=== PATIENT | female | born 1985 | race Caucasian/White ===

== ENCOUNTER 2018-03-16 04:02 | Inpatient (IN) | payer OTHER ==
[2018-03-16] MEDS ORDERED: Lidocaine 1%* 5 ML VIAL ONE (05:56)
--- NOTE | 2018-03-16 06:06 | HP ---
General Information - General Information Maternal Age: 32 Grav: 1 Para: 0 SAB: 0 IEA: 0 Estimated Due Date: 03/07/18 Determined By: LMP Gestational Age in Weeks and Days: 41 Weeks and 2 Days Maternal Blood Type and Rh: O Positive - Results this Serology/RPR Result: Non-Reactive Rubella Result: Immune HBsAg Result: Negative HIV Result: Negative GBS Culture Result: Negative Past Medical History Delivery History Comment: primip Pertinent Past Medical History: See Records Past Medical History Comment: Hx depression/anxiety. No current medication Pertinent Past Surgical History: See Records Past Surgical History Comment: 2000 wisdom tooth extraction Pertinent Family History: See Records Family History Comment: Father: Chronic lymphatic leukemia. Recurrent fungal infections Mother: Hypothyroidism PGM: . Stroke PGF: . Lupus MGM: . Heart disease MGF: Diabetes - Antepartal Records Antepartal Records: Reviewed, Complicated by: - Breech s/p successful ECV 02/18/2018. Suspected SGA with close surveillance Review of Systems Constitutional: Uncomfortable - with UCs CV Complaint: No Respiratory: Shortness of Breath: No Gastrointestinal: No Nausea/Vomiting - +Nausea with UCs. +Diarrhea overnight Genitourinary: No Dysuria, No Bleeding, No Leaking Fluid Musculoskeletal: Contractions Neurological: No Headache, No Visual Changes Movement: Normal Exam Allergies/Adverse Reactions: Allergies Sulfa (Sulfonamide Antibiotics) Allergy (Verified 02/18/18 08:53) Rash blotchy purple patches BP: 111/76 HR: 73 RR: 18 T: 97.4 O2Sat: 100% on RA - Measurements Height: 5 ft 2 in Weight: 153 lb Weight in lbs: 153.684149 Body Mass Index (BMI): 28.0 Pre- Weight: 120 lb Weight Gained This : 33 lbs and 0 ozs - Exam Abdomen: No Upper Quadrant Pain Breast: Breast Exam Deferred CVA: No CVA Tenderness Extremities: Edema - mild bilateral pedal edema Heart: Normal Rhythm/Heart Sounds HEENT: No Significant Findings Lungs: Clear Bilaterally Rectal: Rectal Exam Deferred Reflexes: DTR 2+ Thyroid: No Thyromegaly - Abdominal Exam Abdomen Exam: Non-Tender - Ultrasound/Biophysical Profile Ultrasound Status: Not Done Targeted Exam Findings See L&D Outpatient Visit Provider Note for Findings: N/A Estimated Weight: 6.5-7lbs Cervical Exam: Fingertip Effacement: 80% Station: -1 - Per RN exam 0430 Presenting Part: Vertex Membrane Status: Intact Sterile Speculum Exam: Not done Bleeding/Discharge: None EFM Findings - External Monitor Findings Baseline Heart Rate: 125 External Monitor Findings: Accelerations Present, No Pattern of Variable or Late Decelerations - early type decels down to 100-110bpm with UCs, Variability Moderate, Baseline Stable External Monitor Findings Comment: Category II FHT. Doubt metabolic acidemia. Bears close monitoring Contractions: Regular, Moderate, Strong, 45-90 Seconds, >90 Seconds Contraction Frequency: q 2-5 Assessment/Plan - Reason for Visit Reason for Visit: IUP at 41-2/7 in early active labor - Obstetrical Risk Factors Obstetrical Risk Factors: Post-Dates - Plan Plan: Observe, Early Labor, IV Hydration Plan Comment: P: Admit pt to L&D. Counseled for trial IV fluids. Given nausea and persistent diarrhea overnight pt agrees. Close monitoring of FHT. Pt hoping for minimal intervention. Will be supported by and labor asl interpreter at bedside. Report to Cheryl Kemp CNM who will assume care at 0800 - Date/Time of Admission Date of Admission: 03/16/18 Time of Admission: 06:00
[2018-03-16 06:31] LABS: ABS Basophils 0 10^3/ul (0-0.2); ABS Eosinophils 0 10^3/ul (0-0.6); ABS Lymphocytes 1.2 10^3/ul (1.0-4.8); ABS Monocytes 0.6 10^3/ul (0-0.8); ABS Neutrophils 13.4 10^3/ul (1.5-7.7); ABS Nucleated RBC 0 10^3/ul; Eosinophil % 0.2 % (0-6); Hematocrit 38 % (35-47); Hemoglobin 13.4 g/dl (12.0-16.0); Lymphocyte % 7.8 % (25-47); Mean Corpuscular HGB Conc 35 g/dl (31-36); Mean Corpuscular Hemoglobin 32 pg (27-31); Mean Corpuscular Volume 92 fL (80-97); Nucleated Red Blood Cells % 0.1; Platelet Count 173 10^3/ul (150-450); Red Blood Count 4.18 10^6/ul (4.00-5.40); Red Cell Distribution Width 13 % (10.5-15); White Blood Count 15.3 10^3/ul (3.5-10.8)
[2018-03-16] MEDS ORDERED: Oxytocin in LR* 20 UNITS/1,000 ML BAG IVPB ONE (11:09)
[2018-03-16] MEDS ORDERED: Glycerin ADULT SUPP PR PRN (11:24)
[2018-03-16] MEDS ORDERED: Witch Hazel PAD* JAR TOPICAL PRN (11:24)
[2018-03-16] MEDS ORDERED: Dibucaine 1% 28.35 GM TUBE PR PRN (11:24)
[2018-03-16] MEDS ORDERED: Tetan/Diph/Pertus SYR(Tdap)* 0.5 ML SYR(BOOSTRIX) use SYR IM ONE (11:24)
[2018-03-16] MEDS ORDERED: Acetaminophen TAB* 325 MG PO PRN (11:24)
--- NOTE | 2018-03-16 11:32 | PROCNOTE ---
[facility] OB: Delivery Note - Nursery Level of Nursery: Regular/Bedside - Perineum Perineal Injury: Abrasion Only - Not Repaired Perineal Repair: None - Additional Delivery Notes Additional Delivery Notes: SVB LFC, OA over intact perineum. Infant to maternal abd, pink with stimulation , suctioning. Terminal meconium. Placenta Loretta, calcified. Fundus firm with massage, IV with pitocin running. EBL 200cc. Baby with Apgars 9/9. Mother and baby stable.
[2018-03-16] MEDS ORDERED: Oxytocin in LR* 20 UNITS/1,000 ML BAG IVPB SCH (12:00)
[2018-03-16] MEDS: Ibuprofen TAB* 600 MG PO PRN ×2 (13:33→21:49)
[2018-03-16] MEDS: Docusate CAP* 100 MG PO SCH (20:41)
[2018-03-17 06:53] LABS: Hematocrit 32 % (35-47); Mean Corpuscular HGB Conc 35 g/dl (31-36); Mean Corpuscular Hemoglobin 32 pg (27-31); Mean Corpuscular Volume 92 fL (80-97); Mean Platelet Volume 9.1 um3 (7.4-10.4); Platelet Count 146 10^3/ul (150-450); Red Blood Count 3.49 10^6/ul (4.00-5.40); Red Cell Distribution Width 13 % (10.5-15); White Blood Count 14.8 10^3/ul (3.5-10.8)
[2018-03-17] MEDS: Docusate CAP* 100 MG PO SCH ×3 (08:46→21:11)
[2018-03-17] MEDS: Ibuprofen TAB* 600 MG PO PRN ×3 (08:46→21:11)
[2018-03-17] MEDS ORDERED: Ferrous Gluconate TAB* 324 MG TAB PO SCH (09:00)
--- NOTE | 2018-03-17 16:47 | PTEDU ---
Patient Name: TONI SIBLYE TONI SIBLEY selected video: Follow Me Mum: [facility] [place] [facility] Successful to view on 8 at 4:46:48 PM [id number]
[2018-03-18] MEDS: Ibuprofen TAB* 600 MG PO PRN ×2 (05:57→12:28)
[2018-03-18 08:12] VITALS: BP 105/65
[2018-03-18] MEDS: Docusate CAP* 100 MG PO SCH (08:32)
== END 2018-03-18 13:05 | disposition home or self-care (01) | DRG 560 ==
LOC: MCHOBOUT 04:02 → MCHOB 05:46
PROVIDERS: ADMIT Midwife; ATTEND Midwife
DX: O48.0 Post-term pregnancy (principal); Z37.0 Single live birth; Z3A.41 41 weeks gestation of pregnancy; Z88.2 Allergy status to sulfonamides; O71.89 Other specified obstetric trauma; O77.0 Labor and delivery complicated by meconium in amniotic fluid
CPT/HCPCS: 36415; 85025; 85027; 86850; 86900; 86901; A9270-GY

== ENCOUNTER 2018-07-31 11:12 | Emergency (ER) | payer OTHER ==
[2018-07-31 11:30] VITALS: BP 100/63
--- NOTE | 2018-07-31 13:11 | UC ---
Respiratory Complaint HPI - HPI Summary HPI Summary: 32 yo pt with nasal d/c, congestion and cough for the past 5 days. Currently , delivered her baby girl in February 2018, on MVI. States she has clear post nasal drip, no chills or fever. Denies n/v/d. States she feels run down. Has no menses since, but has a Paragard inserted. - History of Current Complaint Chief Complaint: UCRespiratory Stated Complaint: HEADACHE SINUS ISSUE NO ENERGY Time Seen by Provider: 07/31/18 12:39 Hx Obtained From: Patient Hx Last Menstrual Period: del 03/16/18 Onset/Duration: Gradual Onset, Lasting Days Timing: Constant Severity Initially: Mild Severity Currently: Mild Pain Intensity: 0 Aggravating Factors: Nothing Alleviating Factors: Nothing Associated Signs And Symptoms: Positive: Negative - Risk Factors Pulmonary Embolism Risk Factors: Negative Cardiac Risk Factors: Negative Pseudomonas Risk Factors: Negative Tuberculosis Risk Factors: Negative - Allergies/Home Medications Allergies/Adverse Reactions: Allergies Allergy/AdvReac Type Severity Reaction Status Date / Time Sulfa (Sulfonamide Allergy Rash Verified 07/31/18 11:31 Antibiotics) PMH/Surg Hx/FS Hx/Imm Hx Previously Healthy: Yes - Surgical History Surgical History: Yes Surgery Procedure, Year, and Place: 2000 - [place] teeth pulled - Family History Known Family History: Positive: None - Social History Alcohol Use: None Substance Use Type: None Smoking Status (MU): Never Smoked Tobacco Have You Smoked in the Last Year: No - Immunization History Most Recent Influenza Vaccination: unknown Most Recent Pneumonia Vaccination: none Review of Systems All Other Systems Reviewed And Are Negative: Yes ENT: Positive: Sore Throat, Nasal Discharge, Sinus Congestion Respiratory: Positive: Cough Physical Exam Triage Information Reviewed: Yes Appearance: Well-Appearing, No Pain Distress, Well-Nourished Vital Signs: Initial Vital Signs Temp 98.3 F 07/31/18 11:28 Pulse 100 07/31/18 11:28 Resp 20 07/31/18 11:28 BP 100/63 07/31/18 11:28 Pulse Ox 100 07/31/18 11:28 Vital Signs Reviewed: Yes Eyes: Positive: Conjunctiva Clear ENT: Positive: Hearing grossly normal, Pharynx normal, TMs normal, Uvula midline Neck: Positive: Supple, Nontender, No Lymphadenopathy Respiratory: Positive: Chest non-tender, Lungs clear, Normal breath sounds, No respiratory distress Cardiovascular: Positive: RRR, No Murmur, Pulses Normal, Brisk Capillary Refill Abdomen Description: Positive: Nontender Neurological: Positive: Alert, Muscle Tone Normal Psychological: Positive: Normal Response To Family Skin Exam: Other - non tender soft subcutaneous mass on medial aspect of distal right leg UC Diagnostic Evaluation - Laboratory O2 Sat by Pulse Oximetry: 100 Respiratory Course/Dx - Course Course Of Treatment: viral URI, continue supportive care. Will have stand by antibiotic amoxil if symptoms start worsening but wait and see option given. Lipoma of leg is non tender and patient hasn't noticed any growth, follow up with PCP - Differential Dx/Diagnosis Provider Diagnoses: lipoma. URI viral Discharge - Sign-Out/Discharge Documenting (check all that apply): Patient Departure All imaging exams completed and their final reports reviewed: No Studies - Discharge Plan Condition: Stable Disposition: HOME Patient Education Materials: Viral Syndrome (ED), Amoxicillin (By mouth) Referrals: Mary Monge MD [Primary Care Provider] - - Billing Disposition and Condition Condition: STABLE Disposition: Home
== END 2018-07-31 13:51 | disposition home or self-care (01) ==
LOC: UCEAST 11:12
DX: J06.9 Acute upper respiratory infection, unspecified (principal); D17.9 Benign lipomatous neoplasm, unspecified; Z88.2 Allergy status to sulfonamides
CPT/HCPCS: 99212; G0463

== ENCOUNTER 2019-04-23 19:05 | Emergency (ER) | payer OTHER ==
[2019-04-23 20:46] LABS: ABS Lymphocytes 0.4 10^3/ul (1.0-4.8); ABS Monocytes 0.4 10^3/ul (0-0.8); ABS Neutrophils 4.9 10^3/ul (1.5-7.7); Eosinophil % 0.3 %; Hematocrit 42 % (35-47); Hemoglobin 14.5 g/dL (12.0-16.0); Lymphocyte % 7.2 %; Mean Corpuscular HGB Conc 35 g/dL (31-36); Mean Corpuscular Hemoglobin 30 pg (27-31); Mean Corpuscular Volume 86 fL (80-97); Mean Platelet Volume 8.4 fL (7.4-10.4); Platelet Count 184 10^3/uL (150-450); Red Cell Distribution Width 13 % (10-15); White Blood Count 5.8 10^3/uL (3.5-10.8)
[2019-04-23 20:50] LABS: Urine Appearance Clear; Urine Bilirubin Negative (Negative); Urine Blood Negative (Negative); Urine Color Straw; Urine Glucose Negative (Negative); Urine Ketones Negative (Negative); Urine Nitrite Negative (Negative); Urine Protein Negative (Negative); Urine Specific Gravity 1.003 (1.010-1.030); Urine Urobilinogen Negative (Negative)
[2019-04-23 21:06] LABS: Albumin 5.4 g/dL (3.2-5.2); Albumin/Globulin Ratio 1.5 (1-3); BUN/Creatinine Ratio 15.1 (8-20); C Reactive Protein 16.57 mg/L (<8.01); Calcium 9.6 mg/dL (8.6-10.3); EGFR African American 109.8 (>60); EGFR Non-African American 90.7 (>60); Globulin 3.5 g/dL (2-4); Potassium 3.6 mmol/L (3.5-5.0); Total Bilirubin 0.5 mg/dL (0.2-1.0); Total Protein 8.9 g/dL (6.4-8.9)
[2019-04-23] MEDS ORDERED: Ketorolac INJ* 30 MG/ML 1 ML VIAL IV PUSH ONE (22:07)
--- NOTE | 2019-04-23 22:25 | ED ---
GI/ HPI - HPI Summary HPI Summary: 33-year-old female presents with left lower quadrant pain today. States she's been having a fever. Her 1-year-old child has been sick with diarrhea for the past 2 weeks and did have a fever last week. She denies any nausea vomiting. No diarrhea. She did not eat anything different. Did travel about a month ago to [facility]. She's never had this before. No medical conditions. Did not take anything for the fever. Denies any cough. No chest pain or shortness breath. No previous abd surgeries. - History of Current Complaint Chief Complaint: EDAbdPain Time Seen by Provider: 04/23/19 22:00 Stated Complaint: FEVER/ABD PAIN PER PT Hx Last Menstrual Period: del 03/16/18 Pain Intensity: 8 - Allergy/Home Medications Allergies/Adverse Reactions: Allergies Allergy/AdvReac Type Severity Reaction Status Date / Time Sulfa (Sulfonamide Allergy Rash Verified 04/23/19 19:15 Antibiotics) Home Medications: Home Medications Levothyroxine TAB* [Synthroid TAB*] 12.5 mcg PO DAILY 04/23/19 [History Confirmed 04/23/19] Magnesium Oxide TAB* [MagOx 400 TAB*] 400 mg PO DAILY 04/23/19 [History Confirmed 04/23/19] Braddock-3 Fatty Acids/Fish Oil [Braddock 3] 1 cap PO DAILY 04/23/19 [History Confirmed 04/23/19] Pnv No.95/Ferrous Fum/Folic AC [ Vitamin/Iron 28-0.8 mg] 1 tab PO DAILY 04/23/19 [History Confirmed 04/23/19] PMH/Surg Hx/FS Hx/Imm Hx Endocrine/Hematology History: Denies: Hx Diabetes, Hx Thyroid Disease Cardiovascular History: Denies: Hx Hypertension Respiratory History: Denies: Hx Asthma, Hx Chronic Obstructive Pulmonary Disease (COPD) GI History: Denies: Hx Ulcer Psychiatric History: Reports: Hx Anxiety, Hx Depression - Surgical History Surgery Procedure, Year, and Place: 2000 - [place] teeth pulled Infectious Disease History: No Infectious Disease History: Reports: Traveled Outside the in Last 30 Days Denies: Hx Clostridium Difficile, Hx Hepatitis, Hx Human Immunodeficiency Virus (HIV), Hx of Known/Suspected MRSA, Hx Shingles, Hx Tuberculosis, Hx Known/ Suspected VRE, Hx Known/Suspected VRSA, History Other Infectious Disease - Family History Known Family History: Positive: None - Social History Alcohol Use: None Substance Use Type: Reports: None Smoking Status (MU): Never Smoked Tobacco Have You Smoked in the Last Year: No Review of Systems Positive: Fever Negative: Chest Pain Negative: Shortness Of Breath Positive: Abdominal Pain. Negative: Vomiting, Diarrhea, Nausea All Other Systems Reviewed And Are Negative: Yes Physical Exam Triage Information Reviewed: Yes Vital Signs On Initial Exam: Initial Vitals Temp Pulse Resp BP Pulse Ox 101.7 F 104 15 113/70 99 04/23/19 19:14 04/23/19 19:14 04/23/19 19:14 04/23/19 19:14 04/23/19 19:14 Vital Signs Reviewed: Yes Appearance: Positive: Well-Appearing Skin: Positive: Warm, Dry Head/Face: Positive: Normal Head/Face Inspection Eyes: Positive: Normal, Conjunctiva Clear ENT: Positive: Pharynx normal Respiratory/Lung Sounds: Positive: Clear to Auscultation, Breath Sounds Present Cardiovascular: Positive: Normal, RRR Abdomen Description: Positive: Soft, Other: - tenderess in LLQ Bowel Sounds: Positive: Present Musculoskeletal: Positive: Normal Neurological: Positive: Normal Psychiatric: Positive: Normal Diagnostics - Vital Signs Vital Signs Temp Pulse Resp BP Pulse Ox 04/23/19 21:10 102.4 F 97 18 109/90 100 04/23/19 19:14 101.7 F 104 15 113/70 99 - Laboratory Lab Results: Lab Results 04/23/19 04/23/19 04/23/19 Range/Units 20:34 20:34 20:34 WBC 5.8 (3.5-10.8) 10^3/uL RBC 4.80 (3.70-4.87) 10^6 /uL Hgb 14.5 (12.0-16.0) g/dL Hct 42 (35-47) % MCV 86 (80-97) fL MCH 30 (27-31) pg MCHC 35 (31-36) g/dL RDW 13 (10-15) % Plt Count 184 (150-450) 10^3/uL MPV 8.4 (7.4-10.4) fL Neut % (Auto) 84.8 % Lymph % (Auto) 7.2 % [place] % (Auto) 7.1 % Eos % (Auto) 0.3 % Baso % (Auto) 0.6 % Absolute Neuts (auto) 4.9 (1.5-7.7) 10^3/ul Absolute Lymphs (auto) 0.4 L (1.0-4.8) 10^3/ul Absolute Monos (auto) 0.4 (0-0.8) 10^3/ul Absolute Eos (auto) 0.0 (0-0.6) 10^3/ul Absolute Basos (auto) 0.0 (0-0.2) 10^3/ul Absolute Nucleated RBC 0.0 10^3/ul Nucleated RBC % 0.0 Sodium 132 L (135-145) mmol/L Potassium 3.6 (3.5-5.0) mmol/L Chloride 99 L (101-111) mmol/L Carbon Dioxide 22 (22-32) mmol/L Anion Gap 11 (2-11) mmol/L BUN 11 (6-24) mg/dL Creatinine 0.73 (0.51-0.95) mg/dL Est GFR ( Amer) 109.8 (>60) Est GFR (Non-Af Amer) 90.7 (>60) BUN/Creatinine Ratio 15.1 (8-20) Glucose 116 H (70-100) mg/dL Lactic Acid 1.7 (0.5-2.0) mmol/L Calcium 9.6 (8.6-10.3) mg/dL Total Bilirubin 0.50 (0.2-1.0) mg/dL AST 28 (13-39) U/L ALT 24 (7-52) U/L Alkaline Phosphatase 94 (34-104) U/L C-Reactive Protein 16.57 H (<8.01) mg/L Total Protein 8.9 (6.4-8.9) g/dL Albumin 5.4 H (3.2-5.2) g/dL Globulin 3.5 (2-4) g/dL Albumin/Globulin Ratio 1.5 (1-3) Lipase 10 L (11.0-82.0) U/L Urine Color Urine Appearance Urine pH (5-9) Ur Specific Hunters (1.010-1.030) Urine Protein (Negative) Urine Ketones (Negative) Urine Blood (Negative) Urine Nitrate (Negative) Urine Bilirubin (Negative) Urine Urobilinogen (Negative) Ur Leukocyte Esterase (Negative) Urine Glucose (Negative) 04/23/19 Range/Units 20:35 WBC (3.5-10.8) 10^3/uL RBC (3.70-4.87) 10^6 /uL Hgb (12.0-16.0) g/dL Hct (35-47) % MCV (80-97) fL MCH (27-31) pg MCHC (31-36) g/dL RDW (10-15) % Plt Count (150-450) 10^3/uL MPV (7.4-10.4) fL Neut % (Auto) % Lymph % (Auto) % [place] % (Auto) % Eos % (Auto) % Baso % (Auto) % Absolute Neuts (auto) (1.5-7.7) 10^3/ul Absolute Lymphs (auto) (1.0-4.8) 10^3/ul Absolute Monos (auto) (0-0.8) 10^3/ul Absolute Eos (auto) (0-0.6) 10^3/ul Absolute Basos (auto) (0-0.2) 10^3/ul Absolute Nucleated RBC 10^3/ul Nucleated RBC % Sodium (135-145) mmol/L Potassium (3.5-5.0) mmol/L Chloride (101-111) mmol/L Carbon Dioxide (22-32) mmol/L Anion Gap (2-11) mmol/L BUN (6-24) mg/dL Creatinine (0.51-0.95) mg/dL Est GFR ( Amer) (>60) Est GFR (Non-Af Amer) (>60) BUN/Creatinine Ratio (8-20) Glucose (70-100) mg/dL Lactic Acid (0.5-2.0) mmol/L Calcium (8.6-10.3) mg/dL Total Bilirubin (0.2-1.0) mg/dL AST (13-39) U/L ALT (7-52) U/L Alkaline Phosphatase (34-104) U/L C-Reactive Protein (<8.01) mg/L Total Protein (6.4-8.9) g/dL Albumin (3.2-5.2) g/dL Globulin (2-4) g/dL Albumin/Globulin Ratio (1-3) Lipase (11.0-82.0) U/L Urine Color Straw Urine Appearance Clear Urine pH 8.0 (5-9) Ur Specific [place] 1.003 L (1.010-1.030) Urine Protein Negative (Negative) Urine Ketones Negative (Negative) Urine Blood Negative (Negative) Urine Nitrate Negative (Negative) Urine Bilirubin Negative (Negative) Urine Urobilinogen Negative (Negative) Ur Leukocyte Esterase Negative (Negative) Urine Glucose Negative (Negative) Result Diagrams: 04/23/19 20:34 04/23/19 20:34 Lab Statement: Any lab studies that have been ordered have been reviewed, and results considered in the medical decision making process. - CT abd CT Interpretation Completed By: Radiologist Summary of CT Findings: IMPRESSION: 1. There is a short segment of jejunum- jejunal intussusception in the left. abdomen without resulting bowel obstruction and no visible mass or inflammatory. change. 2. No other acute CT pathology. GIGU Course/Dx - Course Course Of Treatment: 33-year-old female presents with left lower quadrant pain today. States she's been having a fever. Her 1-year-old child has been sick with diarrhea for the past 2 weeks and did have a fever last week. She denies any nausea vomiting. No diarrhea. She did not eat anything different. Did travel about a month ago to [facility]. She's never had this before. No medical conditions. Did not take anything for the fever. Denies any cough. No chest pain or shortness breath. No previous abd surgeries. On exam tenderness left lower quadrant. Has a fever here. Gave fluids and Toradol. wbc normal. CT shows intussception with no obstruction. discussed case with dr pascal said likely incidental finding and would not do anything with it. told to follow up with primary. patient understand and agrees with plan. - Diagnoses Differential Diagnoses - Female: Gastroenteritis (Viral), Gastroenteritis ( Bacterial), Urinary Tract Infection Provider Diagnoses: Abdominal pain Discharge - Sign-Out/Discharge Documenting (check all that apply): Patient Departure Patient Received Moderate/Deep Sedation with Procedure: No - Discharge Plan Condition: Good Disposition: HOME Patient Education Materials: Acute Abdominal Pain (ED) Referrals: Mary Monge MD [Primary Care Provider] - Additional Instructions: Drink small amounts of fluid as tolerated When able to eat follow BRAT diet: Bananas, rice, applesauce, toast Take ibuprofen or Tylenol for pain as needed every 6 hours Follow up with primary within 5 days Return to ED if develop profuse vomiting or any new or worsening symptoms - Billing Disposition and Condition Condition: GOOD Disposition: Home
[2019-04-23] MEDS: NS 0.9% 1000 ML** 2,000 ML IV ONE ×2 (22:32→22:33)
[2019-04-23] MEDS ORDERED: Iohexol 300* (CONTRAST) 10 ML SDV IV ONE (23:56)
[2019-04-24 02:21] VITALS: BP 89/51
== END 2019-04-24 02:20 | disposition home or self-care (01) ==
LOC: ED 19:05
DX: R10.32 Left lower quadrant pain (principal); K56.1 Intussusception
CPT/HCPCS: 36415; 74177; 80053; 81003; 83605; 83690; 85025; 86140; 87040; 96360; 96361; 96374; 99284; J1885; Q9967

== ENCOUNTER 2021-11-24 04:56 | Inpatient (IN) ==
[2021-11-24] MEDS ORDERED: Buffered Lidocaine 1% SYRIN 1 ml INTRADERM ONE (06:27)
[2021-11-24] MEDS ORDERED: Lactated Ringers 1000 ml BAG 1,000 ML IV ONE (06:27)
[2021-11-24] MEDS ORDERED: Lactated Ringers 1000 ml BAG 1,000 ML IV SCH (07:00)
[2021-11-24] MEDS: Dibucaine 1% OINT 28.35 GM TUBE PR PRN ×2 (10:03→20:19)
[2021-11-24] MEDS: Witch Hazel PAD JAR TOPICAL PRN (10:03)
[2021-11-24 11:19] LABS: Urine Benzodiazepine Screen None Detected (None Detect); Urine Cannabinoids Screen None Detected (None Detect); Urine Opiates Screen None Detected (None Detect)
[2021-11-25 06:15] LABS: ABS Basophils 0.1 10^3/ul (0-0.2); ABS Eosinophils 0.1 10^3/ul (0-0.6); ABS Lymphocytes 2.6 10^3/ul (1.0-4.8); ABS Monocytes 0.8 10^3/ul (0-0.8); ABS Neutrophils 8.4 10^3/ul (1.5-7.7); Eosinophil % 1.1 %; Hematocrit 31 % (35-47); Hemoglobin 10.4 g/dL (12.0-16.0); Lymphocyte % 21.6 %; Mean Corpuscular HGB Conc 33 g/dL (31-36); Mean Corpuscular Hemoglobin 31 pg (27-31); Mean Corpuscular Volume 92 fL (80-97); Mean Platelet Volume 8.6 fL (7.4-10.4); Nucleated Red Blood Cells % 0.2; Platelet Count 171 10^3/uL (150-450); Red Cell Distribution Width 12 % (10-15); White Blood Count 11.9 10^3/uL (3.5-10.8)
[2021-11-25] MEDS: Dibucaine 1% OINT 28.35 GM TUBE PR PRN (19:56)
[2021-11-25] MEDS: Witch Hazel PAD JAR TOPICAL PRN (19:56)
[2021-11-26 08:18] VITALS: BP 115/58
== END 2021-11-26 13:56 | disposition home or self-care (01) | DRG 560 ==
LOC: MCHOBOUT 04:56 → MCHOB 05:32
PROVIDERS: ADMIT Midwife; ATTEND Midwife